=== PATIENT | male | born 1990 | race American Indian/Alaskan Native ===

== ENCOUNTER 2018-12-18 11:56 | Inpatient (IN) | payer MEDICARE ==
--- NOTE | 2018-12-18 12:50 | Emergency Department Report ---
Blank Doc - Documentation Documentation: 28 yo male presents to ED stating that he missed dialysis x 1 week
[2018-12-18 13:12] LABS: Basophils # (Auto) 0.1 K/mm3 (0.0-0.1); Eosinophils # (Auto) 0.3 K/mm3 (0.0-0.4); Eosinophils % (Auto) 4.2 % (0.0-4.3); Hematocrit 32.9 % (35.5-45.6); Hemoglobin 10.5 gm/dl (11.8-15.2); Lymphocytes # (Auto) 1.1 K/mm3 (1.2-5.4); Lymphocytes % (Auto) 18.5 % (13.4-35.0); Mean Corpuscular HGB Conc 32 % (32-34); Mean Corpuscular Volume 82 fl (84-94); Monocytes # (Auto) 0.7 K/mm3 (0.0-0.8); Monocytes % (Auto) 11.5 % (0.0-7.3); Platelet Count 214 K/mm3 (140-440); Red Cell Distribution Width 16.8 % (13.2-15.2)
[2018-12-18 13:21] LABS: Albumin 4.9 g/dL (3.9-5); Calcium 8.3 mg/dL (8.4-10.2)
--- NOTE | 2018-12-18 13:44 | Emergency Department Report ---
ED General Adult HPI - General Chief complaint: Recheck/Abnormal Lab/Rx Stated complaint: ABNORMAL LABS Time Seen by Provider: 12/18/18 12:48 Source: patient Mode of arrival: Ambulatory Limitations: No Limitations - History of Present Illness Initial comments: 28-year-old male with past medical history hypertension and end-stage renal disease on dialysis Friday, , Friday has not had dialysis times one week. Patient states he just recently [place] and has been busy moving and therefore missed his dialysis. He denies shortness of breath, pain, or edema. Patient still makes urine. Pt also states he is allerg ic to an unknown med. He also requests that I refer to his medical records/system in the computer to obtain his current medications. I explained that he has never been here before and hospital computer system is are not connected to one another. Pt did not take his BP med today since he typically t akes it after dialysis. Severity scale (0 -10): 0 - Related Data Allergies Allergy/AdvReac Type Severity Reaction Status Date / Time Unable to Assess Allergy Unverified 12/18/18 12:09 ED Review of Systems ROS: Stated complaint: ABNORMAL LABS Other details as noted in HPI ED Past Medical Hx - Past Medical History Hx Hypertension: Yes Hx Renal Disease: Yes - Surgical History Past Surgical History?: Yes Additional Surgical History: " ALOT OF THEM." - Social History Smoking Status: Never Smoker Substance Use Type: None ED Physical Exam - General Limitations: No Limitations ED Course Vital Signs 12/18/18 12/18/18 12/18/18 12:09 14:32 14:45 Temperature 97.7 F Pulse Rate 69 65 71 Respiratory 16 14 13 Rate Blood Pressure 160/103 141/98 O2 Sat by Pulse 100 Oximetry 12/18/18 15:00 Temperature Pulse Rate 72 Respiratory 14 Rate Blood Pressure 151/88 O2 Sat by Pulse 100 Oximetry - Consultations Consultation #1: 12/18/18 13:48 case d/w DR jay with special assemblies supervisor racheal shearer for hyperkalemia in ed, will arrange for dialysis ED Medical Decision Making - Lab Data Result diagrams: 12/18/18 12:38 12/18/18 12:38 Lab Results 12/18/18 12/18/18 Range/Units 12:38 12:38 WBC 6.1 (4.5-11.0) K/mm3 RBC 4.00 (3.65-5.03) M/mm3 Hgb 10.5 L (11.8-15.2) gm/dl Hct 32.9 L (35.5-45.6) % MCV 82 L (84-94) fl MCH 26 L (28-32) pg MCHC 32 (32-34) % RDW 16.8 H (13.2-15.2) % Plt Count 214 (140-440) K/mm3 Lymph % (Auto) 18.5 (13.4-35.0) % [place] % (Auto) 11.5 H (0.0-7.3) % Eos % (Auto) 4.2 (0.0-4.3) % Baso % (Auto) 1.0 (0.0-1.8) % Lymph # 1.1 L (1.2-5.4) K/mm3 [place] # 0.7 (0.0-0.8) K/mm3 Eos # 0.3 (0.0-0.4) K/mm3 Baso # 0.1 (0.0-0.1) K/mm3 Seg Neutrophils % 64.8 (40.0-70.0) % Seg Neutrophils # 3.9 (1.8-7.7) K/mm3 Sodium 136 L (137-145) mmol/L Potassium 6.4 H* (3.6-5.0) mmol/L Chloride 104.9 (98-107) mmol/L Carbon Dioxide 17 L (22-30) mmol/L Anion Gap 21 mmol/L BUN 63 H (9-20) mg/dL Creatinine 8.4 H (0.8-1.5) mg/dL Estimated GFR 9 ml/min BUN/Creatinine Ratio 8 % Glucose 77 (75-100) mg/dL Calcium 8.3 L (8.4-10.2) mg/dL Total Bilirubin 0.30 (0.1-1.2) mg/dL AST 10 (5-40) units/L ALT 21 (7-56) units/L Alkaline Phosphatase 108 (35-129) units/L Total Protein 8.1 (6.3-8.2) g/dL Albumin 4.9 (3.9-5) g/dL Albumin/Globulin Ratio 1.5 % - EKG Data -: EKG Interpreted by Me EKG shows normal: sinus rhythm, axis (qrs 62), QRS complexes (qrsd 88), ST-T waves (peak t waves) Rate: normal - EKG Data When compared to previous EKG there are: previous EKG unavailable - Medical Decision Making Patient presenting with hyperkalemia after missing several dialysis sessions. Meds ordered for hyperkalemia, special assemblies supervisor consultation, patient will be admitted for dialysis. - Differential Diagnosis volume overload, hyperkalemia Critical Care Time: No Critical care attestation.: If time is entered above; I have spent that time in minutes in the direct care of this critically ill patient, excluding procedure time. ED Disposition Clinical Impression: Hyperkalemia, ESRD needing dialysis, Dialysis patient, noncompliant, HTN (hypertension) Disposition: OP ADMIT IP TO THIS HOSP Is pt being admited?: Yes Condition: Stable Time of Disposition: 13:55 (Dr newton/hosp)
[2018-12-18] MEDS ORDERED: PROVENTIL IH ONE (13:46)
[2018-12-18] MEDS ORDERED: KIONEX PO ONE (13:47)
[2018-12-18] MEDS ORDERED: HumuLIN R IV ONE (13:47)
--- NOTE | 2018-12-18 13:58 | Consultation ---
History of Present Illness - Reason for Consult Consult date: 12/18/18 end stage renal disease - History of Present Illness the patient is a 28 year old male with ESRD on HD secondary to HTN for the ast 3 years, his last treatment was Friday via R AVF, he could not have his tx done yesterday at his dialysis clinic for unclear reason, his lab results are significant for hyperkalemia and renal consult was requested for HD management Past History Past Medical History: ESRD, hypertension Medications and Allergies Allergies Allergy/AdvReac Type Severity Reaction Status Date / Time Unable to Assess Allergy Unverified 12/18/18 12:09 Active Meds: Active Medications Dextrose (D50w (25gm) Vial) 25 gm IV ONCE ONE Stop: 12/18/18 13:47 Calcium Gluconate 1,000 mg/ (Sodium Chloride) 110 mls @ 660 mls/hr IV ONCE ONE Stop: 12/18/18 13:56 Furosemide 120 mg/ Sodium (Chloride) 62 mls @ 100 mls/hr IV ONCE ONE Stop: 12/18/18 14:21 Review of Systems All systems: negative (weakness) Exam - Vital Signs Vital signs: Vital Signs Temp Pulse Resp BP 97.7 F 69 16 160/103 12/18/18 12:09 12/18/18 12:09 12/18/18 12:09 12/18/18 12:09 - General Appearance General appearance: well-developed, well-nourished, appears stated age EENT: ATNC, PERRL, mucous membranes moist Neck: Present: neck supple Respiratory: Clear to Ascultation Heart: regular, S1S2 Gastrointestinal: Present: normoactive bowel sounds. Absent: tenderness, distended Integumentary: no rash, warm and dry Neurologic: no focal deficit, no asterixis, alert and oriented x3 Musculoskeletal: Present: other (no edema in BLE) Psychiatric: mood/affect appropriate, cooperative Results - Lab Results 12/18/18 12:38 12/18/18 12:38 Most recent lab results Calcium 8.3 mg/dL (8.4-10.2) L 12/18/18 12:38 Assessment and Plan ESRD on HD Hyperkalemia secondary to missing HD anemia in CKD HTN - STAT HD ordered - LYRIC as needed with HD - UF with HD - renally dose meds - strict I&O - daily weight Deonte Oneal MD [phone]
[2018-12-18] MEDS ORDERED: LASIX IV ONE (14:46)
[2018-12-18] MEDS ORDERED: NACL 0.9% IV ONE (14:46)
[2018-12-18] MEDS ORDERED: CALCIUM GLUCONATE 1,000 MG in NACL 0.9% 100 ML IV ONE (14:47)
[2018-12-18] MEDS ORDERED: HumuLIN R ONE (14:51)
[2018-12-18] MEDS ORDERED: KIONEX ONE (14:54)
[2018-12-18] MEDS ORDERED: D50W (25GM) Syringe IV ONE ×2 (14:55→15:00)
[2018-12-18] MEDS ORDERED: SODIUM BICARBONATE IV ONE (16:00)
[2018-12-18 17:04] LABS: Hepatitis C Virus Antibody Non-Reactive (NonReactive)
--- NOTE | 2018-12-18 17:20 | History and Physical Report ---
History of Present Illness Date of examination: 12/18/18 Date of admission: 12/18/18 13:57 Chief complaint: Missed HD for 1 week History of present illness: 28-year-old male with past medical history hypertension and end-stage renal disease on dialysis Friday, , Friday has not had dialysis times one week. Patient states he just recently moved [place] an area from another state and has been busy moving and therefore missed his dialysis. He denies shortness of breath, pain, or edema. Patient still makes urine. Past Medical History Hx Hypertension: Yes Hx Renal Disease: Yes Surgical History Past Surgical History?: Yes Additional Surgical History: " ALOT OF THEM." Social History Smoking Status: Never Smoker Substance Use Type: None Family History Htn Review of Systems ROS: Stated complaint: ABNORMAL LABS Other details as noted in HPI Past History Past Medical History: ESRD, hypertension Medications and Allergies Allergies Allergy/AdvReac Type Severity Reaction Status Date / Time Unable to Assess Allergy Unverified 12/18/18 12:09 Home Medications Medication Instructions Recorded Confirmed Last Taken Type Carvedilol 25 mg PO BID 12/18/18 12/18/18 Unknown History Sevelamer Carbonate 800 mg PO TID 12/18/18 12/18/18 Unknown History Spironolactone 50 mg PO QDAY 12/18/18 12/18/18 Unknown History Warfarin Sodium 5 mg PO QDAY 12/18/18 12/18/18 Unknown History amLODIPine [Norvasc] 10 mg PO QDAY 12/18/18 12/18/18 Unknown History cloNIDine [Catapres] 0.1 mg PO BID 12/18/18 12/18/18 Unknown History hydrALAZINE 100 mg PO TID 12/18/18 12/18/18 Unknown History Exam - Constitutional Vitals: Temp Pulse Resp BP Pulse Ox 97.7 F 67 16 157/96 100 12/18/18 12:09 12/18/18 16:45 12/18/18 16:45 12/18/18 16:45 12/18/18 16:15 General appearance: Present: no acute distress, well-nourished - EENT Eyes: Present: PERRL ENT: hearing intact, clear oral mucosa - Neck Neck: Present: supple, normal ROM - Respiratory Respiratory effort: normal Respiratory: bilateral: CTA - Cardiovascular Heart rate: 78 Rhythm: regular Heart Sounds: Present: S1 & S2. Absent: rub, click - Extremities Extremities: no ischemia, pulses intact, pulses symmetrical, No edema Peripheral Pulses: within normal limits - Abdominal General gastrointestinal: Present: soft, non-tender, non-distended, normal bowel sounds Male genitourinary: Present: normal - Rectal Rectal Exam: deferred - Integumentary Integumentary: Present: clear, warm, dry - Musculoskeletal Musculoskeletal: gait normal, strength equal bilaterally - Psychiatric Psychiatric: appropriate mood/affect, intact judgment & insight - Neurologic Neurologic: CNII-XII intact, moves all extremities - Allied Health Allied health notes reviewed: nursing, case management Results - Labs CBC & Chem 7: 12/19/18 05:22 12/19/18 05:22 Labs: Laboratory Last Values WBC 6.1 K/mm3 (4.5-11.0) 12/18/18 12:38 RBC 4.00 M/mm3 (3.65-5.03) 12/18/18 12:38 Hgb 10.5 gm/dl (11.8-15.2) L 12/18/18 12:38 Hct 32.9 % (35.5-45.6) L 12/18/18 12:38 MCV 82 fl (84-94) L 12/18/18 12:38 MCH 26 pg (28-32) L 12/18/18 12:38 MCHC 32 % (32-34) 12/18/18 12:38 RDW 16.8 % (13.2-15.2) H 12/18/18 12:38 Plt Count 214 K/mm3 (140-440) 12/18/18 12:38 Lymph % (Auto) 18.5 % (13.4-35.0) 12/18/18 12:38 [place] % (Auto) 11.5 % (0.0-7.3) H 12/18/18 12:38 Eos % (Auto) 4.2 % (0.0-4.3) 12/18/18 12:38 Baso % (Auto) 1.0 % (0.0-1.8) 12/18/18 12:38 Lymph # 1.1 K/mm3 (1.2-5.4) L 12/18/18 12:38 [place] # 0.7 K/mm3 (0.0-0.8) 12/18/18 12:38 Eos # 0.3 K/mm3 (0.0-0.4) 12/18/18 12:38 Baso # 0.1 K/mm3 (0.0-0.1) 12/18/18 12:38 Seg Neutrophils % 64.8 % (40.0-70.0) 12/18/18 12:38 Seg Neutrophils # 3.9 K/mm3 (1.8-7.7) 12/18/18 12:38 Sodium 136 mmol/L (137-145) L 12/18/18 12:38 Potassium 6.4 mmol/L (3.6-5.0) H* 12/18/18 12:38 Chloride 104.9 mmol/L (98-107) 12/18/18 12:38 Carbon Dioxide 17 mmol/L (22-30) L 12/18/18 12:38 Anion Gap 21 mmol/L 12/18/18 12:38 BUN 63 mg/dL (9-20) H 12/18/18 12:38 Creatinine 8.4 mg/dL (0.8-1.5) H 12/18/18 12:38 Estimated GFR 9 ml/min 12/18/18 12:38 BUN/Creatinine Ratio 8 % 12/18/18 12:38 Glucose 77 mg/dL (75-100) 12/18/18 12:38 Calcium 8.3 mg/dL (8.4-10.2) L 12/18/18 12:38 Total Bilirubin 0.30 mg/dL (0.1-1.2) 12/18/18 12:38 AST 10 units/L (5-40) 12/18/18 12:38 ALT 21 units/L (7-56) 12/18/18 12:38 Alkaline Phosphatase 108 units/L (35-129) 12/18/18 12:38 Total Protein 8.1 g/dL (6.3-8.2) 12/18/18 12:38 Albumin 4.9 g/dL (3.9-5) 12/18/18 12:38 Albumin/Globulin Ratio 1.5 % 12/18/18 12:38 Hepatitis A IgM Ab Non-reactive (NonReactive) 12/18/18 16:20 Hep B Core IgM Ab Non-reactive (NonReactive) 12/18/18 16:20 Hepatitis C Antibody Non-reactive (NonReactive) 12/18/18 16:20 Short CBC 12/18/18 12/19/18 Range/Units 12:38 05:22 WBC 6.1 6.5 (4.5-11.0) K/mm3 Hgb 10.5 L 10.9 L (11.8-15.2) gm/dl Hct 32.9 L 33.1 L (35.5-45.6) % Plt Count 214 192 (140-440) K/mm3 BMP 12/18/18 12/18/18 12/19/18 12:38 21:50 05:22 Sodium 136 L 136 L 141 Potassium 6.4 H* 3.5 L D Chloride 104.9 91.7 L 98.3 Carbon Dioxide 17 L 27 D 24 BUN 63 H 27 H 35 H Creatinine 8.4 H 4.7 H 5.9 H Glucose 77 166 H 78 Calcium 8.3 L 8.5 8.2 L Liver Function 12/18/18 Range/Units 12:38 Total Bilirubin 0.30 (0.1-1.2) mg/dL AST 10 (5-40) units/L ALT 21 (7-56) units/L Alkaline Phosphatase 108 (35-129) units/L Albumin 4.9 (3.9-5) g/dL Assessment and Plan Advance Directives: Yes (FC) VTE prophylaxis?: Chemical Plan of care discussed with patient/family: Yes - Patient Problems (1) Hyperkalemia Current Visit: Yes Status: Acute Plan to address problem: Hyperkalemia adressed Going for HD (2) ESRD needing dialysis Current Visit: Yes Status: Acute Plan to address problem: Going for HD emergently (3) HTN (hypertension) Current Visit: Yes Status: Chronic Qualifiers: Hypertension type: essential hypertension Qualified Code(s): I10 - Essential (primary) hypertension Plan to address problem: Cont antihypertensives (4) Dialysis patient, noncompliant Current Visit: Yes Status: Acute Plan to address problem: Counselled (5) DVT prophylaxis Current Visit: Yes Status: Acute Plan to address problem: On Heparin
[2018-12-18] MEDS ORDERED: ZOFRAN IV PRN (17:21)
[2018-12-18] MEDS ORDERED: TYLENOL PO PRN (17:21)
[2018-12-18] MEDS ORDERED: DILAUDID IV PRN (17:21)
[2018-12-18] MEDS ORDERED: SODIUM CHLORIDE FLUSH SYRINGE 10 ML IV PRN (17:21)
[2018-12-18] MEDS ORDERED: PERCOCET 5/325 PO PRN (17:21)
[2018-12-18] MEDS ORDERED: SODIUM CHLORIDE FLUSH SYRINGE 10 ML IV SCH (22:00)
[2018-12-18] MEDS ORDERED: PEPCID PO SCH (22:00)
[2018-12-18 22:33] LABS: Calcium 8.5 mg/dL (8.4-10.2)
[2018-12-19 06:33] LABS: Hematocrit 33.1 % (35.5-45.6); Hemoglobin 10.9 gm/dl (11.8-15.2); Mean Corpuscular HGB Conc 33 % (32-34); Mean Corpuscular Volume 80 fl (84-94); Platelet Count 192 K/mm3 (140-440); Red Blood Count 4.11 M/mm3 (3.65-5.03); Red Cell Distribution Width 16.1 % (13.2-15.2)
[2018-12-19 06:36] LABS: Calcium 8.2 mg/dL (8.4-10.2)
[2018-12-19 07:08] VITALS: BP 112/79
[2018-12-19] MEDS ORDERED: RENVELA PO SCH (08:00)
[2018-12-19] MEDS ORDERED: HYDRALAZINE 100 MG PO SCH (08:00)
[2018-12-19] MEDS ORDERED: APRESOLINE PO SCH (08:00)
[2018-12-19] MEDS ORDERED: NON-FORMULARY (Spironolactone 50 MG) PO SCH (10:00)
[2018-12-19] MEDS ORDERED: ALDACTONE PO SCH (10:00)
[2018-12-19] MEDS ORDERED: CATAPRES PO SCH (10:00)
[2018-12-19] MEDS ORDERED: NORVASC PO SCH (10:00)
[2018-12-19] MEDS ORDERED: COREG PO SCH (10:00)
[2018-12-19] MEDS ORDERED: COUMADIN PO SCH (10:00)
[2018-12-19] MEDS ORDERED: NON-FORMULARY (Carvedilol 25 MG) PO SCH (10:00)
[2018-12-19 11:06] LABS: INR 1.01 (0.87-1.13)
--- NOTE | 2018-12-19 15:16 | Discharge Summary ---
Providers - Providers Date of Admission: 12/18/18 13:57 Date of discharge: 12/19/18 Attending physician: FELIPE SANTOYO 12/18/18 13:45 Consult to Physician [CONS] Urgent Comment: Consulting Provider: LOLI FIERRO Physician Instructions: Reason For Exam: esrd needing dialysis, hyperkalemia [facility] care [facility]: [facility] Hospitalization Condition: Stable Hospital course: Patient was seen and examined. He states he is only here for HD and wants to go home. He has no symptoms so he wants to leave but he needs a note from the Inventory Worker to go back to HD center because he misses HD session. He reports feeling better after hemodialysis. I told him that the Inventory Worker will see him but he states he doesn't want to wait and therefore He left AMA ESRD, admits to missing HD; adult school counselor on compliance Disposition: DC-07 LEFT AGAINST MED ADVICE Core Measure Documentation - Palliative Care Palliative Care/ Comfort Measures: Not Applicable - Core Measures Any of the following diagnoses?: none - VTE Discharge Requirements Deep Vein Thrombosis/Pulmonary Embolism Present on Admission: No Has pt received <5 days of overlap therapy or INR<2.0: No Anticoagulant overlap therapy prescribed at discharge: No Contraindication No Overlap Therapy order at DC: Not Indicated Exam - Constitutional Vitals: Temp Pulse Resp BP Pulse Ox 98.8 F 84 20 112/79 96 12/19/18 04:57 12/19/18 04:57 12/19/18 04:57 12/19/18 04:57 12/19/18 04:57 Plan Follow up with: YOANDY MURRELL MD [Primary Care Provider] - 3-5 Days Forms: AMA Form
[2018-12-25 09:21] LABS: Hepatitis B Surface Antigen Nonreactive (Negative)
== END 2018-12-19 11:30 | disposition left against medical advice (07) | DRG 640 ==
LOC: ED 11:56 → 4A 13:57
PROVIDERS: ADMIT Internal Medicine; ATTEND Internal Medicine
PROC: 5A1D70Z Performance of Urinary Filtration, Intermittent, Less than 6 Hours Per Day (ICD-10-PCS; principal; 2018-12-18)
DX: E87.5 Hyperkalemia (principal); N18.6 End stage renal disease; I12.0 Hypertensive chronic kidney disease with stage 5 chronic kidney disease or end stage renal disease; D63.1 Anemia in chronic kidney disease; Z53.21 Procedure and treatment not carried out due to patient leaving prior to being seen by health care provider; Z91.15 Patient's noncompliance with renal dialysis; Z99.2 Dependence on renal dialysis; Z82.49 Family history of ischemic heart disease and other diseases of the circulatory system; Z71.89 Other specified counseling
CPT/HCPCS: 36415; 80048; 80053; 80074; 83036; 83735; 85025; 85610; 93005; 93010; 94640; G0378; J0610; J1815; J1940